=== PATIENT | female | born 1950 | race Caucasian/White ===

== ENCOUNTER 2016-12-10 11:00 | Emergency (ER) | payer MEDICAID, MEDICARE ==
[~2016-12-10] VITALS: Ht 160 cm; Wt 70.3 kg
[~2016-12-10 11:00] MED LIST: AMITRIP; IBU800T PO; LEVOTHYROXINE; [UNRECOGNIZED DRUG - OTHER] PO
[2016-12-10 11:18] VITALS: BP 147/84
[2016-12-10 12:20] LABS: Basophils # (auto) 0.2 uL; Basophils % (auto) 1.2 % (0.0-2.0); Eosinophils # (auto) 0.1 uL; Eosinophils % (auto) 0.5 % (0.0-7.0); Hematocrit 43.5 % (36.0-46.0); Hemoglobin 14.9 g/dL (12.2-16.2); Lymphocytes # (auto) 2.9 uL; Lymphocytes % (auto) 23.5 % (10.0-50.0); Mean Corpuscular Hemoglobin 32.3 pg (28.0-32.0); Mean Corpuscular Hgb Conc. 34.3 g/dL (32.0-36.0); Mean Corpuscular Volume 94.2 fL (80.0-100.0); Mean Platelet Volume 8.6 fL (7.4-10.4); Monocytes # (auto) 0.9 uL; Monocytes % (auto) 7.2 % (0.0-12.0); Neutrophils # (auto) 8.4 uL; Neutrophils % (auto) 67.6 % (37.0-80.0); Platelet Count (auto) 438 10^3/uL (140-450); Red Cell Distribution Width 12.8 % (11.6-16.0); White Blood Cell 12.4 10^3/uL (4.4-10.8)
[2016-12-10 12:26] LABS: Urine Bilirubin Negative (Negative); Urine Blood Negative /uL (Negative); Urine Color Yellow (Yellow); Urine Glucose 4+ mg/dL (Normal); Urine Ketone Negative (Negative); Urine Mucus FEW (None Seen); Urine Nitrite Negative (Negative); Urine RBC 1 /hpf (0 - 4); Urine Squamous Epithelial Cell FEW /hpf (<5); Urine Urobilinogen Normal (Negative)
[2016-12-10 12:45] LABS: Anion Gap 9 (5-15); BUN/Creatinine Ratio 33.3; Blood Urea Nitrogen 18 mg/dL (7-18); Carbon Dioxide 22 mmol/L (21-32); Chloride 105 mmol/L (98-107); GFR African American 145 mL/min; Glucose 128 mg/dL (74-106); Potassium 4.5 mmol/L (3.5-5.1); Sodium 136 mmol/L (136-145)
[2016-12-10 12:46] LABS: Alkaline Phosphatase 91 U/L (45-117); Aspartate Aminotransferase 24 U/L (15-37); Bilirubin, Total 0.5 mg/dL (0.2-1.0); Calcium 9.6 mg/dL (8.5-10.1); GFR Non-African American 120 mL/min; Total Protein 7.6 g/dL (6.4-8.2)
== END 2016-12-10 13:27 | disposition home or self-care (01) ==
LOC: ER 11:03
DX: F41.9 Anxiety disorder, unspecified (principal); N39.0 Urinary tract infection, site not specified; E05.90 Thyrotoxicosis, unspecified without thyrotoxic crisis or storm; I10 Essential (primary) hypertension
CPT/HCPCS: 36415; 80053; 81001; 84443; 84484; 85025

== ENCOUNTER 2016-12-25 08:16 | Emergency (ER) | payer OTHER ==
[~2016-12-25] VITALS: Ht 157.5 cm; Wt 70.8 kg
[2016-12-25 08:36] VITALS: BP 130/78
== END 2016-12-25 09:01 | disposition home or self-care (01) ==
LOC: ER 08:16
DX: F41.1 Generalized anxiety disorder (principal); G47.00 Insomnia, unspecified; F32.9 Major depressive disorder, single episode, unspecified; I10 Essential (primary) hypertension; E07.9 Disorder of thyroid, unspecified

== ENCOUNTER 2017-01-07 10:04 | Emergency (ER) | payer OTHER ==
[~2017-01-07] VITALS: Ht 160 cm; Wt 70.3 kg
[2017-01-07 10:20] VITALS: BP 129/80
[2017-01-07] MEDS ORDERED: diphenhdrAMINE HCL 50 MG/1 ML VL IM ONE (10:45)
== END 2017-01-07 11:38 | disposition home or self-care (01) ==
LOC: ER 10:04
DX: F41.1 Generalized anxiety disorder (principal); F32.9 Major depressive disorder, single episode, unspecified; I10 Essential (primary) hypertension; E07.89 Other specified disorders of thyroid
CPT/HCPCS: 96372; 99284; J1200

== ENCOUNTER 2017-01-10 10:51 | Emergency (ER) | payer OTHER ==
[~2017-01-10] VITALS: Ht 160 cm; Wt 70.3 kg
[2017-01-10 10:55] VITALS: BP 106/79
== END 2017-01-10 13:37 | disposition home or self-care (01) ==
LOC: ER 10:51
DX: F41.1 Generalized anxiety disorder (principal); N39.0 Urinary tract infection, site not specified; G47.00 Insomnia, unspecified; F32.9 Major depressive disorder, single episode, unspecified; I10 Essential (primary) hypertension; E07.89 Other specified disorders of thyroid

== ENCOUNTER 2017-02-07 09:37 | Emergency (ER) | payer OTHER ==
[~2017-02-07] VITALS: Ht 157.5 cm; Wt 70.3 kg
[2017-02-07] MEDS ORDERED: methylPREDNISolone SOD SUCC 125 MG/2 ML VL IV ONE (10:00)
[2017-02-07 10:27] VITALS: BP 143/93
[2017-02-07] MEDS ORDERED: LORazepam 2MG/ML-1ML VIAL IM ONE (11:00)
== END 2017-02-07 11:19 | disposition home or self-care (01) ==
LOC: ER 09:37
DX: F41.9 Anxiety disorder, unspecified (principal); G47.00 Insomnia, unspecified; F32.9 Major depressive disorder, single episode, unspecified; I10 Essential (primary) hypertension; E07.9 Disorder of thyroid, unspecified
CPT/HCPCS: 96372; 99284; J2060